=== PATIENT | female | born 1955 ===

== ENCOUNTER 2018-07-27 11:31 | Emergency (ER) | payer SELFPAY ==
[2018-07-27 11:34] VITALS: RESP 18; O2SAT 100; BMI 30.1
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
--- NOTE | 2018-07-27 13:55 | CT ---
Date of service: 07/27/2018 PROCEDURE: CT HEAD WITHOUT CONTRAST. HISTORY: headache COMPARISON: None available. TECHNIQUE: Axial computed tomography images were obtained through the head/brain without intravenous contrast. Radiation dose: Total exam DLP = mGy-cm. This CT exam was performed using one or more of the following dose reduction techniques: Automated exposure control, adjustment of the mA and/or kV according to patient size, and/or use of iterative reconstruction technique. FINDINGS: HEMORRHAGE: No intracranial hemorrhage. BRAIN: No mass effect or edema. No atrophy or chronic microvascular ischemic changes. VENTRICLES: Unremarkable. No hydrocephalus. CALVARIUM: Unremarkable. PARANASAL SINUSES: Unremarkable as visualized. No significant inflammatory changes. MASTOID AIR CELLS: Unremarkable as visualized. No inflammatory changes. OTHER FINDINGS: None. IMPRESSION: Normal CT of the Head.
--- NOTE | 2018-07-27 14:15 | CT ---
Date of service: 07/27/2018 PROCEDURE: CT Cervical Spine without contrast HISTORY: neck pain COMPARISON: None available. TECHNIQUE: Axial computed tomography images were obtained of the cervical spine without the use of intravenous contrast. Coronal and sagittal reformatted images were created and reviewed. Radiation dose: Total exam DLP = mGy-cm. This CT exam was performed using one or more of the following dose reduction techniques: Automated exposure control, adjustment of the mA and/or kV according to patient size, and/or use of iterative reconstruction technique. FINDINGS: VERTEBRAE: No fracture. Normal alignment. No destructive bony lesion. DISCS/SPINAL CANAL/NEURAL FORAMINA: Multilevel degenerative disc disease and spondylosis. No fracture.. PARASPINAL SOFT TISSUES: Unremarkable. OTHER FINDINGS: None. IMPRESSION: No fracture..
--- NOTE | 2018-07-27 15:50 | ED PDOC ---
- ECG O2 Sat by Pulse Oximetry: 100 (RA) Pulse Ox Interpretation: Normal Medical Decision Making Medical Decision Making: Time: 1500 -- Patient endorsed to me by Dr. Segura, pending CT of the Lumbar spine, reassessment and final ER disposition. Time: 1725 CT RESULTS FINDINGS: Vertebrae: There is an acute fracture of the superior endplate of L2. There is loss of normal vertebral body height by 10-20%. No other fractures. Normal alignment. Discs/spinal canal/neural foramina: No acute findings. No spinal canal stenosis. Soft tissues: Unremarkable. IMPRESSION: Superior endplate fracture of L2. Thank you for allowing us to participate in the care of your patient. Dictated and Authenticated by: Tyler Pack MD 07/27/2018 5:26 PM Eastern Time ([place] & [place]) Time: 1745 -- Discussed with patient findings. At this time, patient presents with no deficits and is comfortable walking. Patient is instructed to follow up as an outpatient. ____ Scribe Attestation: Documented by Briseyda Brown acting as a scribe for Snow Caba MD. Provider Scribe Attestation: All medical record entries made by the Scribe were at my direction and personally dictated by me. I have reviewed the chart and agree that the record accurately reflects my personal performance of the history, physical exam, medical decision making, and the department course for this patient. I have also personally directed, reviewed, and agree with the discharge instructions and disposition. Disposition - Clinical Impression Clinical Impression: Fracture, lumbar vertebra, compression - POA Present On Arrival: Falls Or Trauma - Disposition Referrals: [facility] [Outside] [facility] [place] [Outside] ([facility]A SEMANA POR MAS EVALUACIONES Y TRATIMIENTE.) Disposition: Routine/Home Disposition Time: 15:46 Condition: STABLE Prescriptions: Ibuprofen [Motrin Tab] 600 mg PO Q8 PRN #30 tab PRN Reason: Pain, Moderate (4-7) Lidocaine 5% [Lidoderm] 1 ea TD DAILY PRN #20 patch PRN Reason: PAIN Instructions: Vertebral Compression Fracture (DC) Forms: [employer] (Nigerian) Print Language: IRISH
--- NOTE | 2018-07-27 17:58 | RAD ---
Date of service: 07/27/2018 PROCEDURE: Radiographs of the Lumbar Spine. HISTORY: back pain COMPARISON: No prior. FINDINGS: BONES: Mild to moderate anterior wedge compression fracture of L2. DISC SPACES: Unremarkable. OTHER FINDINGS: None. IMPRESSION: Mild to moderate anterior wedge compression fracture of L2.
--- NOTE | 2018-07-27 18:00 | CT ---
Date of service: 07/27/2018 PROCEDURE: CT Lumbar Spine without contrast HISTORY: pain, possible fx COMPARISON: None available. TECHNIQUE: Axial computed tomography images were obtained of the lumbar spine without the use of intravenous contrast. Coronal and sagittal reformatted images were created and reviewed. Radiation dose: Total exam DLP = mGy-cm. This CT exam was performed using one or more of the following dose reduction techniques: Automated exposure control, adjustment of the mA and/or kV according to patient size, and/or use of iterative reconstruction technique. FINDINGS: VERTEBRAE: Mild to moderate anterior wedge compression fracture of L2. prevertebral soft tissue edema suggesting acute age. DISCS/SPINAL CANAL/NEURAL FORAMINA: L1-2: Unremarkable. L2-3: Unremarkable. L3-4: Unremarkable. L4-5: Unremarkable. L5-S1: Unremarkable. PARASPINAL SOFT TISSUES: Unremarkable. OTHER FINDINGS: None. IMPRESSION: Mild to moderate anterior wedge compression fracture of L2; prevertebral soft tissue edema suggesting acute age.
[2018-07-27 19:55] VITALS: BP 130/78; PULSE 78; TEMP 98.6
== END 2018-07-27 19:55 | disposition home or self-care (01) ==
LOC: H.ER 11:31
DX: S32.000A Wedge compression fracture of unspecified lumbar vertebra, initial encounter for closed fracture (principal); V03.10XA Pedestrian on foot injured in collision with car, pick-up truck or van in traffic accident, initial encounter; Y92.410 Unspecified street and highway as the place of occurrence of the external cause
CPT/HCPCS: 70450; 72114; 72125; 72131; 96372; 99283; J1885